=== PATIENT | female | born 1970 | race Asian ===

== ENCOUNTER 2025-01-20 12:16 | Outpatient (CLI) | payer BC | END 2025-01-20 12:17 | disposition home or self-care (01) | LOC: CSHMRI 12:16 | PROVIDERS: ATTEND Family Medicine | DX: R91.1 Solitary pulmonary nodule (principal); G31.1 Senile degeneration of brain, not elsewhere classified; R91.8 Other nonspecific abnormal finding of lung field; G93.89 Other specified disorders of brain | CPT/HCPCS: 70553; 71270; 76376 ==